=== PATIENT | male | born 1995 | race Caucasian/White ===

== ENCOUNTER 2017-09-16 19:01 | Emergency (ER) | payer BC, SELFPAY ==
[2017-09-16] MEDS ORDERED: Ibuprofen 600 MG TAB ONE (19:18)
[2017-09-16] MEDS ORDERED: Oseltamivir 75 MG CAP ONE (19:32)
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
== END 2017-09-16 19:35 | disposition home or self-care (01) ==
LOC: MADERS 19:01
DX: J11.1 Influenza due to unidentified influenza virus with other respiratory manifestations (principal)
CPT/HCPCS: 71046

== ENCOUNTER 2020-08-30 08:06 | Emergency (ER) | payer BC ==
[2020-08-30] MEDS ORDERED: Ketorolac Tromethamine 30 MG/ML VIAL ONE (08:27)
[2020-08-30 08:36] LABS: Hemoglobin 15.6 g/dL (14.0-18.0); Mean Corpuscular HGB CONC 33.3 g/dL (32.0-36.0); Mean Corpuscular Hemoglobin 29.3 pg (27.0-31.0); Mean Corpuscular Volume 88.1 fL (78.0-98.0); Mean Platelet Volume 7.7 fL (7.4-10.4); Platelet Count 237 thou/uL (130-400); Red Blood Cell (RBC) Count 5.33 mill/uL (4.70-6.10); White Blood Cell (WBC) Count 16.8 thou/uL (4.8-10.8)
[2020-08-30 08:41] LABS: Anisocytosis SLIGHT = 6-15 cells (100X) (0-5/hpf); Band 2 % (5-11); Lymphocytes 12 % (21-51); MDiff Complete? YES; Manual Diff?? YES; Monocytes 6 % (0-10); Neutrophil 80 % (42-75); Platelet Morphology Comment Appears Adequate
[2020-08-30 08:54] LABS: ALT (SGPT) 25 U/L (8-55); AST (SGOT) 37 U/L (5-34); Albumin 4.5 g/dL (3.5-5.0); Alkaline Phosphatase 82 U/L (40-110); Anion Gap 16 mmol/L (10-20); BUN (Urea Nitrogen) 15 mg/dL (8.9-20.6); Bilirubin, Total 0.5 mg/dL (0.2-1.2); Calc. Creatinine Clearance 0 mL/min (70-130); Calcium 9.1 mg/dL (7.8-10.44); Carbon Dioxide 21 mmol/L (22-29); Chloride 107 mmol/L (98-107); Globulin 2.6 g/dL (2.4-3.5); Glucose 84 mg/dL (70-105); Lipase 11 U/L (8-78); Protein, Total 7.1 g/dL (6.0-8.3); Sodium 140 mmol/L (136-145)
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
[2020-08-30] MEDS ORDERED: Bacitracin 1 PK ONE (09:34)
[2020-08-30 09:49] LABS: Bilirubin Negative (Negative); Blood, Urine Negative (Negative); Clarity Clear (Clear); Glucose, Urine (Dipstick) Negative (Negative); Ketone, Urine 15 mg/dL (Negative); Leukocyte Negative (Negative); Nitrite Negative (Negative); Protein, Urine (Dipstick) Trace mg/dL (Neg-Trace); pH, Urine 5.5 (5.0-9.0)
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
[2020-08-30] MEDS ORDERED: Iopamidol 370 76% 100 ML VIAL ONE (12:14)
== END 2020-08-30 10:08 | disposition home or self-care (01) ==
LOC: MADERS 08:06
DX: S02.2XXA Fracture of nasal bones, initial encounter for closed fracture (principal); S00.11XA Contusion of right eyelid and periocular area, initial encounter; V86.99XA Unspecified occupant of other special all-terrain or other off-road motor vehicle injured in nontraffic accident, initial encounter
CPT/HCPCS: 70450; 70486; 71260; 72125; 74177; 80053; 81003; 83690; 84484; 85025; 94760; 96374; J1885; Q9967